=== PATIENT | male | born 1985 | race Caucasian/White ===

== ENCOUNTER 2020-10-11 17:17 | Emergency (ER) | payer OTHER ==
[~2020-10-11] VITALS: Ht 175.3 cm; Wt 90.7 kg
[2020-10-11 17:33] VITALS: BP 126/72
[2020-10-11] MEDS ORDERED: TOMOMETER 1 DEV DEV MC ONE ×2 (18:10→18:27)
--- NOTE | 2020-10-11 18:23 | NUR ---
visual acuity as follows: OD-20/10 OS- 20/15 OU- 20/10
[2020-10-11] MEDS: FLUORESCEIN OPTH STRIP 1 MG OP ONE (18:33)
[2020-10-11] MEDS: TETRACAINE HCL/PF 0.5% OPTH 4 ML BTL OP ONE (18:34)
--- NOTE | 2020-10-11 18:44 | NUR ---
Patient discharged with v/s stable. Written and verbal after care instructions given and explained. Patient alert, oriented and verbalized understanding of instructions. Ambulatory with steady gait. All questions addressed prior to discharge. ID band removed. Patient advised to follow up with PMD. Rx of eryhtromycin, ibuprofen and norco given. Patient educated on indication of medication including possible reaction and side effects. Opportunity to ask questions provided and answered.
== END 2020-10-11 18:44 | disposition home or self-care (01) ==
LOC: MED 17:17
DX: H57.13 Ocular pain, bilateral (principal)
CPT/HCPCS: 99283

== ENCOUNTER 2021-02-24 10:37 | Emergency (ER) | payer OTHER ==
[~2021-02-24] VITALS: Ht 175.3 cm; Wt 89.4 kg
[2021-02-24 10:41] VITALS: BP 121/76
--- NOTE | 2021-02-24 10:45 | NUR ---
Pt taken to ER bed 7.
--- NOTE | 2021-02-24 10:48 | NUR ---
Dr. Lema at pt bedside for further evaluation.
--- NOTE | 2021-02-24 10:58 | NUR ---
US tech at pt bedside.
--- NOTE | 2021-02-24 10:59 | NUR ---
35 Y/O M BIB SELF FROM HOME, PATIENT PRESENTS TO ED WITH SCROTUM PAIN AND PAINFUL URINATION THAT STARTED 6 DAYS AGO. PT DENIES SWELLING IN AREA, CONSTIPATION, CVA TENDERNESS OR ABD PAIN. DENIES N/V/D; SKIN IS PINK/WARM/DRY; AAOX4 WITH EVEN AND STEADY GAIT; LUNGS CLEAR BL; HR EVEN AND REGULAR; PT DENIES ANY FEVER, CP, SOB, OR COUGH AT THIS TIME; PATIENT STATES PAIN OF 7/10 AT THIS TIME; VSS; PATIENT POSITIONED FOR COMFORT; HOB ELEVATED; BEDRAILS UP X2; BED DOWN. ER MD MADE AWARE OF PT STATUS. PMH: NONE NKA MEDS: NONE
[2021-02-24] MEDS ORDERED: IBUPROFEN 600 MG TAB PO ONE (11:00)
[2021-02-24 11:36] LABS: APPEARANCE,URINE CLEAR (CLEAR); BILIRUBIN,URINE 1+ (NEGATIVE); BLOOD, URINE NEGATIVE (NEGATIVE); COLOR,URINE YELLOW (YELLOW); LEUKOCYTE ESTERASE ,URINE TRACE (NEGATIVE); NITRITE, URINE NEGATIVE (NEGATIVE); UGLUCOSE NEGATIVE (NEGATIVE)
[2021-02-24 12:03] LABS: RBC,URINE 0-5 /HPF (0-5); WBC,URINE 0-5 /HPF (0-5)
[2021-02-24] MEDS ORDERED: IBUP-2213 PO (12:49)
[2021-02-24 13:10] VITALS: BP 121/76
== END 2021-02-24 13:02 | disposition home or self-care (01) ==
LOC: MED 10:37
DX: N45.1 Epididymitis (principal)
CPT/HCPCS: 36415; 76870; 81001; 87491; 99284

== ENCOUNTER 2021-03-05 22:37 | Emergency (ER) | payer OTHER ==
[~2021-03-05] VITALS: Ht 175.3 cm; Wt 95.7 kg
[~2021-03-05 22:37] MED LIST: IBUP-2213 PO
[2021-03-05 22:43] VITALS: BP 124/69
--- NOTE | 2021-03-05 22:49 | NUR ---
AMBULATED TO ER BED 2
--- NOTE | 2021-03-05 22:50 | NUR ---
Jonathon latham in [facility] - 03/05/21 at 2250 by [email or web address] PT AMBULATORY TO BED #2
[2021-03-05] MEDS ORDERED: ACETAMINOPHEN EXTRA STRENGTH 500 MG TAB PO ONE (22:55)
--- NOTE | 2021-03-05 23:00 | NUR ---
35 Y.O MALE PRESENTS TO THE ED WITH BILATERAL TESTICULAR PAIN X10 DAYS. PAIN IS CURRENTLY A 8/10 THAT IS ACHEY CONSTANT AND UNCOMFORTABLE. AAOX4. VSS. THERE IS X1 SWELLING ON THE TESTICLES. PMH: N/A ALLERGIES: NKA
[2021-03-05 23:15] LABS: BASOPHILS % (AUTO) 0.5 % (0.0-2.0); EOSINOPHILS # (AUTO) 0.2 K/uL (0-0.4); EOSINOPHILS % (AUTO) 2.8 % (0.0-4.0); HEMATOCRIT 41.2 % (36-52); HEMOGLOBIN 14.1 g/dL (12.0-18.0); LYMPHOCYTES # (AUTO) 3.1 K/uL (2.0-11.5); LYMPHOCYTES % (AUTO) 41.4 % (20.5-51.1); MEAN CORPUSCULAR HEMOGLOBIN 30 pg (27-31); MEAN CORPUSCULAR HGB CONC 34 g/dL (33-37); MEAN CORPUSCULAR VOLUME 86.9 fL (80-94); MONOCYTES # (AUTO) 0.6 K/uL (0.8-1.0); MONOCYTES % (AUTO) 8.2 % (1.7-9.3); NEUTROPHILS # (AUTO) 3.6 K/uL (1.8-7.7); NEUTROPHILS % (AUTO) 47.1 % (42.2-75.2); PLATELET COUNT (AUTO) 261 K/uL (140-450); RED BLOOD CELL COUNT(AUTO) 4.74 MIL/uL (4.20-6.10); RED CELL DISTRIBUTION WIDTH 13.1 % (11.6-13.7); WHITE BLOOD COUNT (AUTO) 7.6 K/uL (4.8-10.8)
--- NOTE | 2021-03-05 23:15 | NUR ---
ERMD at bedside for examination and examining testicles with RN.
[2021-03-05] MEDS ORDERED: HYDROcodone/APAP 5/325 MG 1 TAB TAB PO ONE (23:20)
[2021-03-05 23:33] LABS: ANION GAP 11.9 (8-16); CARBON DIOXIDE 28.7 mmol/L (21-32); CREATININE 1.1 mg/dL (0.6-1.3); POTASSIUM 3.6 mmol/L (3.5-5.1); TOTAL BILIRUBIN 0.2 mg/dL (0.0-1.0)
--- NOTE | 2021-03-05 23:36 | NUR ---
Ultrasound at bedside
[2021-03-05 23:37] LABS: APPEARANCE,URINE CLEAR (CLEAR); BILIRUBIN,URINE NEGATIVE (NEGATIVE); BLOOD, URINE NEGATIVE (NEGATIVE); COLOR,URINE YELLOW (YELLOW); LEUKOCYTE ESTERASE ,URINE NEGATIVE (NEGATIVE); NITRITE, URINE NEGATIVE (NEGATIVE); UGLUCOSE NEGATIVE (NEGATIVE)
--- NOTE | 2021-03-05 23:40 | NUR ---
ultrasound DC due to patient having ultrasound 10 days ago. MD notified and aware.
--- NOTE | 2021-03-06 00:23 | NUR ---
ERMD AT BEDSIDE FOR RE-EXAMINATION OF PATIENT PAIN
[2021-03-06] MEDS ORDERED: ACET-8386 PO (00:28)
[2021-03-06 00:50] VITALS: BP 121/72
--- NOTE | 2021-03-06 00:50 | NUR ---
Patient discharged with v/s stable. Written and verbal after care instructions given and explained. Patient alert, oriented and verbalized understanding of instructions. Ambulatory with steady gait. All questions addressed prior to discharge. ID band removed. Patient advised to follow up with PMD. Rx of HYDROCODON-ACETAMIONPHEN given. Patient educated on indication of medication including possible reaction and side effects. Opportunity to ask questions provided and answered.
== END 2021-03-06 00:50 | disposition home or self-care (01) ==
LOC: MED 22:37
DX: N43.3 Hydrocele, unspecified (principal); N50.819 Testicular pain, unspecified
CPT/HCPCS: 36415; 80053; 81003; 85025; 99283

== ENCOUNTER 2021-05-15 00:30 | Emergency (ER) | payer OTHER ==
[~2021-05-15] VITALS: Ht 175.3 cm; Wt 89.8 kg
[~2021-05-15 00:30] MED LIST changes: +ACET-8386 PO
[2021-05-15 00:39] VITALS: BP 147/95
--- NOTE | 2021-05-15 00:46 | NUR ---
PT AMBULATORY TO TENT TO A/W EVALUATION
--- NOTE | 2021-05-15 00:56 | NUR ---
SEE COMPLETE ASSESSMENT
--- NOTE | 2021-05-15 01:02 | NUR ---
COVID SHERYL SWAB COLLECTED. GIVEN TO CLS.
[2021-05-15] MEDS ORDERED: IBUP-2213 PO (02:34)
[2021-05-15] MEDS ORDERED: PRED20TA5 PO (02:34)
[2021-05-15 02:40] VITALS: BP 129/82
--- NOTE | 2021-05-15 02:40 | NUR ---
Patient discharged with v/s stable. Written and verbal after care instructions given and explained. Patient alert, oriented and verbalized understanding of instructions. Ambulatory with steady gait. All questions addressed prior to discharge. ID band removed. Patient advised to follow up with PMD. Rx of IBUPROFEN , PREDNISONE given. Patient educated on indication of medication including possible reaction and side effects. Opportunity to ask questions provided and answered.
[2021-05-16] MEDS ORDERED: AMOX500C25 PO (22:48)
== END 2021-05-15 02:40 | disposition home or self-care (01) ==
LOC: MED 00:30
DX: J06.9 Acute upper respiratory infection, unspecified (principal); Z20.822 Contact with and (suspected) exposure to COVID-19; Z79.899 Other long term (current) drug therapy
CPT/HCPCS: 71045; 99284

== ENCOUNTER 2021-05-16 20:05 | Emergency (ER) | payer OTHER ==
[~2021-05-16] VITALS: Ht 180.3 cm; Wt 88.0 kg
[~2021-05-16 20:05] MED LIST changes: +PRED20TA5 PO
[2021-05-16 20:13] VITALS: BP 145/92
[2021-05-16] MEDS ORDERED: AMOX500C25 PO (22:48)
[2021-05-16 23:15] VITALS: BP 138/88
== END 2021-05-16 23:15 | disposition home or self-care (01) ==
LOC: MED 20:05
DX: J06.9 Acute upper respiratory infection, unspecified (principal); R09.3 Abnormal sputum; Z79.899 Other long term (current) drug therapy
CPT/HCPCS: 99283

== ENCOUNTER 2023-01-10 21:34 | Emergency (ER) | payer OTHER ==
[~2023-01-10] VITALS: Ht 175.3 cm; Wt 90.7 kg
[~2023-01-10 21:34] MED LIST changes: -ACET-8386 PO; +ACET-8905 PO; +AMOX500C25 PO
[2023-01-10 21:40] VITALS: BP 131/85
--- NOTE | 2023-01-10 21:43 | NUR ---
TO LOBBY A/W BED AMBULATORY
--- NOTE | 2023-01-10 22:15 | NUR ---
PT SEEN LEAVING ER IN PERSONAL VEHICLE. PT LWBS. NOTIFIED.
[2023-01-11] MEDS ORDERED: ONDA-188 PO (01:29)
[2023-01-11] MEDS ORDERED: ACET-10509 PO (01:29)
[2023-01-11] MEDS ORDERED: IMO2 PO (01:29)
== END 2023-01-10 22:15 | disposition left against medical advice (07) ==
LOC: MED 21:34
DX: R10.9 Unspecified abdominal pain (principal); Z53.21 Procedure and treatment not carried out due to patient leaving prior to being seen by health care provider
CPT/HCPCS: 99281

== ENCOUNTER 2023-01-10 22:39 | Emergency (ER) | payer OTHER ==
[~2023-01-10] VITALS: Ht 175.3 cm; Wt 90.7 kg
[2023-01-10 23:00] VITALS: BP 146/90
--- NOTE | 2023-01-10 23:03 | NUR ---
TO LOBBY A/W BED AMBULATORY
--- NOTE | 2023-01-10 23:40 | NUR ---
c/o 04/22 lower abd pain, diarrhea, nausea vomiting x 3 days. 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 denies any pmhx, denies any allergies.
--- NOTE | 2023-01-10 23:47 | NUR ---
Dr. Chamberlain by bedside
[2023-01-10] MEDS ORDERED: ACETAMINOPHEN EXTRA STRENGTH 500 MG TAB PO ONE (23:55)
[2023-01-10] MEDS ORDERED: DICYCLOMINE HCL LIQUID 10 MG/5 ML UDC PO ONE (23:55)
[2023-01-10] MEDS ORDERED: ONDANSETRON 4 MG ODT PO ONE (23:55)
[2023-01-10] MEDS ORDERED: ALUMINUM HYD/MAG/SIMETHICONE 30 ML UDC PO ONE (23:55)
[2023-01-11 00:03] LABS: BASOPHILS # (AUTO) 0.1 K/uL (0.00-0.22); BASOPHILS % (AUTO) 0.7 % (0.0-2.0); EOSINOPHILS # (AUTO) 0.2 K/uL (0-0.4); EOSINOPHILS % (AUTO) 2.4 % (0.0-4.0); HEMATOCRIT 42.5 % (36-52); HEMOGLOBIN 14.3 g/dL (12.0-18.0); LYMPHOCYTES # (AUTO) 3.4 K/uL (2.0-11.5); LYMPHOCYTES % (AUTO) 41.4 % (20.5-51.1); MEAN CORPUSCULAR HEMOGLOBIN 29 pg (27-31); MEAN CORPUSCULAR HGB CONC 34 g/dL (33-37); MONOCYTES # (AUTO) 0.7 K/uL (0.8-1.0); MONOCYTES % (AUTO) 8.5 % (1.7-9.3); NEUTROPHILS # (AUTO) 3.9 K/uL (1.8-7.7); PLATELET COUNT (AUTO) 268 K/uL (140-450); RED BLOOD CELL COUNT(AUTO) 4.88 MIL/uL (4.20-6.10); RED CELL DISTRIBUTION WIDTH 13.1 % (11.6-13.7); WHITE BLOOD COUNT (AUTO) 8.3 K/uL (4.8-10.8)
[2023-01-11 00:17] LABS: ANION GAP 9.9 (8-16); CARBON DIOXIDE 30.8 mmol/L (21-32); CREATININE 1.2 mg/dL (0.6-1.3); POTASSIUM 3.7 mmol/L (3.5-5.1); TOTAL BILIRUBIN 0.3 mg/dL (0.0-1.0)
[2023-01-11] MEDS ORDERED: IMO2 PO (01:29)
[2023-01-11] MEDS ORDERED: ACET-10509 PO (01:29)
[2023-01-11] MEDS ORDERED: ONDA-188 PO (01:29)
[2023-01-11 01:37] VITALS: BP 146/90
--- NOTE | 2023-01-11 01:40 | NUR ---
Patient discharged with v/s stable. Written and verbal after care instructions given and explained. New rx loperamide, tylenol, and zofran. Patient verbalized understanding. Ambulatory with steady gait. All questions addressed prior to discharge. Advised to follow up with PMD.
== END 2023-01-11 01:37 | disposition home or self-care (01) ==
LOC: MED 22:39
DX: A08.4 Viral intestinal infection, unspecified (principal); Z79.899 Other long term (current) drug therapy
CPT/HCPCS: 36415; 80053; 83690; 85025; 99284; Q0162

== ENCOUNTER 2023-01-25 17:39 | Emergency (ER) | payer OTHER ==
[~2023-01-25] VITALS: Ht 175.3 cm; Wt 94.8 kg
[~2023-01-25 17:39] MED LIST changes: +ACET-10509 PO; +IMO2 PO; +ONDA-188 PO
[2023-01-25 18:31] VITALS: BP 135/83
--- NOTE | 2023-01-25 18:40 | NUR ---
Dr. Turner examining patient.
[2023-01-25] MEDS ORDERED: ACETAMINOPHEN EXTRA STRENGTH 500 MG TAB PO ONE (18:45)
[2023-01-25] MEDS ORDERED: ONDANSETRON 4 MG ODT PO ONE (18:45)
[2023-01-25 19:03] LABS: BASOPHILS % (AUTO) 0.2 % (0.0-2.0); EOSINOPHILS # (AUTO) 0.2 K/uL (0-0.4); EOSINOPHILS % (AUTO) 3.2 % (0.0-4.0); HEMATOCRIT 44.7 % (36-52); HEMOGLOBIN 14.9 g/dL (12.0-18.0); LYMPHOCYTES # (AUTO) 2.4 K/uL (2.0-11.5); LYMPHOCYTES % (AUTO) 33.3 % (20.5-51.1); MEAN CORPUSCULAR HEMOGLOBIN 30 pg (27-31); MEAN CORPUSCULAR HGB CONC 33 g/dL (33-37); MEAN CORPUSCULAR VOLUME 88.6 fL (80-94); MONOCYTES # (AUTO) 0.8 K/uL (0.8-1.0); MONOCYTES % (AUTO) 11.5 % (1.7-9.3); NEUTROPHILS # (AUTO) 3.7 K/uL (1.8-7.7); NEUTROPHILS % (AUTO) 51.8 % (42.2-75.2); PLATELET COUNT (AUTO) 297 K/uL (140-450); RED BLOOD CELL COUNT(AUTO) 5.05 MIL/uL (4.20-6.10); RED CELL DISTRIBUTION WIDTH 13.6 % (11.6-13.7); WHITE BLOOD COUNT (AUTO) 7.2 K/uL (4.8-10.8)
[2023-01-25 21:12] LABS: ANION GAP 13.2 (8-16); CARBON DIOXIDE 30.7 mmol/L (21-32); CREATININE 1.2 mg/dL (0.6-1.3); POTASSIUM 3.9 mmol/L (3.5-5.1)
[2023-01-25 21:17] LABS: TOTAL BILIRUBIN 0.6 mg/dL (0.0-1.0)
[2023-01-25] MEDS ORDERED: LOPE1TAB14 PO (21:46)
[2023-01-25] MEDS ORDERED: ONDA-188 SL (21:46)
[2023-01-25 22:02] VITALS: BP 135/83
--- NOTE | 2023-01-25 22:02 | NUR ---
Patient discharged. Written and verbal after care instructions given and explained. Patient alert, oriented and verbalized understanding of instructions. Ambulatory with steady gait. All questions addressed prior to discharge. ID band removed. Patient advised to follow up with PMD. Rx of Zofran ODT and Loperamide HCL/Simethicone given. Patient educated on indication of medication including possible reaction and side effects. Opportunity to ask questions provided and answered.
== END 2023-01-25 22:02 | disposition home or self-care (01) ==
LOC: MED 17:39
DX: R11.10 Vomiting, unspecified (principal); R19.7 Diarrhea, unspecified; R10.9 Unspecified abdominal pain
CPT/HCPCS: 36415; 80053; 83690; 85025; 99283; Q0162

== ENCOUNTER 2023-04-24 04:15 | Emergency (ER) | payer OTHER ==
[~2023-04-24] VITALS: Ht 175.3 cm; Wt 93.0 kg
[~2023-04-24 04:15] MED LIST changes: +LOPE1TAB14 PO; +ONDA-188 SL
[2023-04-24 04:40] VITALS: BP 161/78; PULSE 76; RESP 19; TEMP 97.3; O2SAT 98
--- NOTE | 2023-04-24 04:47 | NUR ---
pt to lobby
--- NOTE | 2023-04-24 05:59 | NUR ---
PT TO [facility] AMBULATORY WITH A STEADY GAIT
--- NOTE | 2023-04-24 06:18 | NUR ---
REED RHOADES EXAMINING PATIENT
[2023-04-24] MEDS ORDERED: ALBU0.0912 INH (06:22)
[2023-04-24] MEDS ORDERED: BPM/118S31 PO (06:22)
--- NOTE | 2023-04-24 06:29 | NUR ---
Patient discharged with Acute Bronchitis. Written and verbal after care instructions given and explained. Patient alert, oriented and verbalized understanding of instructions. Ambulatory with steady gait. All questions addressed prior to discharge. ID band removed. Patient advised to follow up with PMD. Rx of Albuterol Sulfate, and Bromfed Dm Cough Syrup given. Patient educated on indication of medication including possible reaction and side effects. Opportunity to ask questions provided and answered.
== END 2023-04-24 06:29 | disposition home or self-care (01) ==
LOC: MED 04:15
DX: J20.8 Acute bronchitis due to other specified organisms (principal); B97.89 Other viral agents as the cause of diseases classified elsewhere; Z79.899 Other long term (current) drug therapy
CPT/HCPCS: 99283

== ENCOUNTER 2023-12-04 16:49 | Inpatient (IN) | payer OTHER ==
[~2023-12-04] VITALS: Ht 175.3 cm; Wt 90.7 kg
[~2023-12-04 16:49] MED LIST changes: +ALBU0.0912 INH; +BROM118S70 PO
[2023-12-04 16:54] VITALS: BP 153/84; PULSE 78; RESP 18; TEMP 97.9; O2SAT 99
[2023-12-04] MEDS: LORazepam 1 MG TAB PO ONE (17:14)
[2023-12-04 17:27] LABS: BASOPHILS % (AUTO) 0.6 % (0.0-2.0); EOSINOPHILS # (AUTO) 0.2 K/uL (0-0.4); EOSINOPHILS % (AUTO) 2.6 % (0.0-4.0); HEMATOCRIT 44.1 % (36-52); HEMOGLOBIN 15.1 g/dL (12.0-18.0); LYMPHOCYTES # (AUTO) 2.6 K/uL (2.0-11.5); LYMPHOCYTES % (AUTO) 38.3 % (20.5-51.1); MEAN CORPUSCULAR HEMOGLOBIN 30 pg (27-31); MEAN CORPUSCULAR HGB CONC 34 g/dL (33-37); MEAN CORPUSCULAR VOLUME 87.1 fL (80-94); MONOCYTES # (AUTO) 0.5 K/uL (0.8-1.0); MONOCYTES % (AUTO) 7.3 % (1.7-9.3); NEUTROPHILS # (AUTO) 3.5 K/uL (1.8-7.7); NEUTROPHILS % (AUTO) 51.2 % (42.2-75.2); PLATELET COUNT (AUTO) 301 K/uL (140-450); RED BLOOD CELL COUNT(AUTO) 5.07 MIL/uL (4.20-6.10); RED CELL DISTRIBUTION WIDTH 13.4 % (11.6-13.7); WHITE BLOOD COUNT (AUTO) 6.8 K/uL (4.8-10.8)
[2023-12-04 17:39] LABS: ANION GAP 13.1 (8-16); CALCIUM 8.8 mg/dL (8.5-10.1); CARBON DIOXIDE 27.4 mmol/L (21-32); CREATININE 1.2 mg/dL (0.6-1.3); POTASSIUM 3.5 mmol/L (3.5-5.1)
[2023-12-04] MEDS ORDERED: ASPIRIN 325 MG TAB ONE (17:58)
[2023-12-04] MEDS: ASPIRIN 325 MG TAB PO ONE (17:59)
[2023-12-04] MEDS: NACL 0.9% 1,000 ML IV ONE (19:38)
[2023-12-04] MEDS ORDERED: ACETAMINOPHEN 325 MG TAB PO PRN (20:10)
[2023-12-04] MEDS ORDERED: ALBUTEROL 0.083% 2.5 MG/3 ML NEBU INH PRN (20:10)
[2023-12-04] MEDS ORDERED: LORazepam 2 MG/ML VIAL IVP PRN (20:10)
[2023-12-04] MEDS ORDERED: ONDANSETRON 4 MG/2 ML VIAL IVP PRN (20:10)
[2023-12-04] MEDS ORDERED: CLONIDINE HYDROCHLORIDE 0.1 MG TAB PO PRN (20:15)
[2023-12-04] MEDS: NACL 0.9% 1,000 ML IV SCH (20:30)
[2023-12-04 21:05] VITALS: PULSE 78; RESP 16; O2SAT 97
[2023-12-04] MEDS: ATORVASTATIN 20 MG TAB PO SCH (21:10)
[2023-12-04 22:05] VITALS: BP 149/92; PULSE 78; RESP 16; TEMP 97.6; O2SAT 97
[2023-12-04] MEDS: MORPHINE SULFATE 2 MG/ML SYR IVP PRN (22:17)
[2023-12-04 22:25] VITALS: PULSE 70
[2023-12-04 23:57] VITALS: PULSE 75
[2023-12-05] VITALS (10 sets, daily range): BP systolic 100–129; BP diastolic 53–72; PULSE 60–94; RESP 18; TEMP 98–98.8; O2SAT 95–99
[2023-12-05 04:20] LABS: BASOPHILS % (AUTO) 0.5 % (0.0-2.0); EOSINOPHILS # (AUTO) 0.2 K/uL (0-0.4); EOSINOPHILS % (AUTO) 2.4 % (0.0-4.0); HEMATOCRIT 42.1 % (36-52); HEMOGLOBIN 14.2 g/dL (12.0-18.0); LYMPHOCYTES # (AUTO) 3.1 K/uL (2.0-11.5); LYMPHOCYTES % (AUTO) 48.7 % (20.5-51.1); MEAN CORPUSCULAR HEMOGLOBIN 29 pg (27-31); MEAN CORPUSCULAR HGB CONC 34 g/dL (33-37); MEAN CORPUSCULAR VOLUME 87.2 fL (80-94); MONOCYTES # (AUTO) 0.6 K/uL (0.8-1.0); MONOCYTES % (AUTO) 9.2 % (1.7-9.3); NEUTROPHILS # (AUTO) 2.5 K/uL (1.8-7.7); NEUTROPHILS % (AUTO) 39.2 % (42.2-75.2); PLATELET COUNT (AUTO) 267 K/uL (140-450); RED BLOOD CELL COUNT(AUTO) 4.82 MIL/uL (4.20-6.10); RED CELL DISTRIBUTION WIDTH 13.3 % (11.6-13.7); WHITE BLOOD COUNT (AUTO) 6.3 K/uL (4.8-10.8)
[2023-12-05 05:07] LABS: ANION GAP 9.6 (8-16); CALCIUM 8.2 mg/dL (8.5-10.1); CARBON DIOXIDE 29.3 mmol/L (21-32); CREATININE 1.1 mg/dL (0.6-1.3); POTASSIUM 3.9 mmol/L (3.5-5.1)
[2023-12-05] MEDS: ASPIRIN 81 MG TAB.CHEW PO SCH (08:12)
[2023-12-06] VITALS (9 sets, daily range): BP systolic 100–145; BP diastolic 51–91; PULSE 65–96; RESP 16–18; TEMP 97.1–98.1; O2SAT 95–98
[2023-12-06] MEDS: REGADENOSON 0.4 MG/5 ML SYR IV SCH (11:00)
[2023-12-07] VITALS (8 sets, daily range): BP systolic 96–154; BP diastolic 50–95; PULSE 65–96; RESP 17–18; TEMP 97.8–98.9; O2SAT 96–99
== END 2023-12-07 12:45 | disposition home or self-care (01) | DRG 206 ==
LOC: MED 16:49 → MTU 20:12
PROVIDERS: ADMIT Student in an Organized Health Care Education/Training Program; ATTEND Student in an Organized Health Care Education/Training Program
DX: M94.0 Chondrocostal junction syndrome [Tietze] (principal); I42.8 Other cardiomyopathies; I10 Essential (primary) hypertension; R79.89 Other specified abnormal findings of blood chemistry; Z79.899 Other long term (current) drug therapy
CPT/HCPCS: 36415; 71045; 80048; 83880; 84484; 85025; 87081; 93005; 93017; 96360; 96361; 99285; A9500; A9502; J2270; J2785

== ENCOUNTER 2024-04-26 21:46 | Emergency (ER) | payer OTHER ==
[~2024-04-26] VITALS: Ht 172.7 cm; Wt 104.3 kg
[2024-04-26 21:50] VITALS: BP 138/90; PULSE 78; RESP 18; TEMP 98; O2SAT 98
[2024-04-26 21:55] VITALS: BP 138/90; PULSE 78; RESP 18; TEMP 98; O2SAT 98
[2024-04-26] MEDS ORDERED: LOPE-143 PO (22:16)
[2024-04-26] MEDS ORDERED: BISM262C53 PO (22:16)
== END 2024-04-26 22:34 | disposition home or self-care (01) ==
LOC: MED 21:46
DX: K52.9 Noninfective gastroenteritis and colitis, unspecified (principal); Z79.899 Other long term (current) drug therapy
CPT/HCPCS: 99281; 99282